=== PATIENT | male | born 1960 | race Two or more races ===

== ENCOUNTER → 2016-12-28 | Day surgery (SDC) | payer BC ==
[~2016-12-28] VITALS: Ht 167.6 cm; Wt 91.3 kg
[~2016-12-28] MED LIST: CERTA PLUS TAB1 EACH PO; DOXYCYCLINE HY100 MG PO; FLOMAX0.4 MG PO; IBUPROFEN800 MG PO; MYRBETRIQ25 MG PO; NAPROSYN500 MG PO; TYLENOL EXTRA500 MG PO; ZANTAC300 MG PO
--- NOTE | ~2016-12-28 | OR ---
PATIENT'S NAME: JAMES CARMONA [facility] AGE: 56 Y [address] ROOM: [place], [place] [address] [place] [facility] [place]: 12/28/2016 OR/Procedure Report DISCHARGE DATE: FAMILY PHYSICIAN: Uri Workman MD ATTENDING PHYSICIAN: ADY HERRON SURGEON: Ady Herron MD SPECIAL EDUCATION TEACHING ASSISTANT: None. DATE OF PROCEDURE: 12/28/2016 PREOPERATIVE DIAGNOSES: 1. Elevated PSA. 2. Benign prostatic hyperplasia with lower urinary tract symptoms. POSTOPERATIVE DIAGNOSES: 1. Elevated PSA. 2. Benign prostatic hyperplasia with lower urinary tract symptoms. OPERATIVE PROCEDURE: Transrectal ultrasound-guided prostate needle biopsy. INDICATIONS FOR PROCEDURE: The patient is a pleasant 56-year-old male with history of elevated PSA noted on routine prostate cancer screening. Most recent PSA was up to 8.4 (December 01, 2016). The patient was explained the risks, benefits, indications, and alternatives to the above procedure and wished to proceed and consented freely. DESCRIPTION OF PROCEDURE: The patient was brought to the procedure room and positioned in the left lateral decubitus position. We placed his knees and hips in the flexed position. Patient identification, procedure, and procedure site were then verified. We also verified the patient is receiving an IV antibiotic within an hour of beginning the procedure. The patient then underwent successful administration of monitored anesthesia care. The ultrasound probe was then inserted per rectum. Sonographic evaluation was performed and there were no lesions or calcifications noted within the prostate. The bladder neck and seminal vesicles did appear to be normal. The prostate volume measured 25.14 cm3. Then, a needle core biopsy device was used to take biopsies of the prostate in a fan technique. Six biopsies (12 total) were taken from each side and each biopsy core appeared to be satisfactory for pathologic analysis. At the conclusion of the procedure, the probe was removed. There were no problems with hemostasis. The patient did tolerate the procedure well. The patient was then awoken from monitored anesthesia care and transferred home following the procedure in good condition. FOLLOWUP PLAN: I will contact the patient once I have had a chance to review the results of the prostate biopsy, which will help guide our followup plan. PATIENT'S NAME: JAMES CARMONA [facility] AGE: 56 Y [address] ROOM: [place], [place] [address] [place] [facility] [place]: 12/28/2016 OR/Procedure Report DISCHARGE DATE: FAMILY PHYSICIAN: Uri Workman MD ATTENDING PHYSICIAN: ADY HERRON ADY HERRON MD GP/modl /[id number] CC: Uri Workman MD d: 12/29/16 0034 t: 01/10/17 0831, OPERATIVE SUMMARY
== END | disposition disaster alternative care site (69) ==
LOC: GPOC 12-22 15:00 → GSDC 13:46 → GPOC 15:00
PROC: 0V9 Male Reproductive System, Drainage (ICD-10-PCS; principal; 2016-12-28)
DX: N40.1 Benign prostatic hyperplasia with lower urinary tract symptoms (principal); R35.0 Frequency of micturition; R97.20 Elevated prostate specific antigen [PSA]; Z98.890 Other specified postprocedural states
CPT/HCPCS: J1956; J7030